=== PATIENT | female | born 1950 | race Caucasian/White ===

== ENCOUNTER 2023-09-06 16:22 | Outpatient (CLI) | payer MEDICARE ==
[2023-09-06 16:47] LABS: Albumin 3.3 g/dL (3.4-4.8); Anion Gap 15 mmol/L (10-20); BUN (Urea Nitrogen) 55 mg/dL (9.8-20.1); BUN/Creatinine Ratio 27.78; Calc. Creatinine Clearance 0 mL/min (70-130); Calcium 8.4 mg/dL (7.8-10.44); Carbon Dioxide 31 mmol/L (23-31); Chloride 98 mmol/L (98-107); Estimated GFR 27; Glucose 286 mg/dL (83-110); Phosphorus 4.8 mg/dL (2.3-4.7); Potassium 4.1 mmol/L (3.5-5.1); Sodium 140 mmol/L (136-145)
[2023-09-06 17:09] LABS: Follow-up Chemistry Comp? YES; Follow-up Result - Chemistry REPORT FAXED
== END 2023-09-06 16:23 | disposition home or self-care (01) ==
LOC: NAV LABSP 16:22
PROVIDERS: ATTEND Internal Medicine Nephrology
DX: N17.9 Acute kidney failure, unspecified (principal); I50.9 Heart failure, unspecified; E11.9 Type 2 diabetes mellitus without complications
CPT/HCPCS: 80069

== ENCOUNTER 2024-03-27 11:47 | Inpatient (IN) | payer MEDICARE ==
[2024-03-27] MEDS ORDERED: Milk Of Magnesia 30 ML UDCUP PO PRN (15:45)
[2024-03-27] MEDS ORDERED: Acetaminophen 325 MG TAB PO PRN (15:45)
[2024-03-27] MEDS ORDERED: Dextrose 50% Abboject 50 ML SYRINGE SLOW IVP PRN (15:48)
[2024-03-27] MEDS ORDERED: Glucagon 1 MG/ML KIT IM PRN (15:48)
[2024-03-27] MEDS ORDERED: Senokot S 8.6-50 MG TAB PO PRN (15:48)
[2024-03-27 17:27] LABS: Glucose 250 mg/dL (83-110)
[2024-03-27] MEDS: Dronedarone HCl 400 MG TAB PO SCH (17:35)
[2024-03-27] MEDS: Insulin Regular 300 UNITS/3 ML VIAL SC PRN (18:41)
[2024-03-27] MEDS: Insulin Regular 300 UNITS/3 ML VIAL ONE (19:32)
[2024-03-27] MEDS: Lantus 1000 UNITS/10 ML VIAL SC SCH (20:46)
[2024-03-27] MEDS: Gabapentin 100 MG CAP PO SCH (20:47)
[2024-03-27] MEDS: Folic Acid 1 MG TAB PO SCH (20:48)
[2024-03-27] MEDS: Apixaban 5 MG TAB PO SCH (20:48)
[2024-03-27] MEDS: Rosuvastatin 10 MG TAB PO SCH (20:48)
[2024-03-27] MEDS: Polyethylene Glycol 3350 17 GM Packet PO SCH (20:49)
[2024-03-28] MEDS: Loratadine 10 MG TAB PO SCH (01:21)
[2024-03-28] MEDS: Levothyroxine 150 MCG TAB PO SCH (01:22)
[2024-03-28 05:53] LABS: #Eosinphils 0.2 thou/uL (0.0-0.7); #Lymphocytes 1.1 thou/uL (1.20-3.40); #Monocytes 0.9 thou/uL (0.11-0.59); #Neutrophils 3.6 thou/uL (1.40-6.50); %Basophils 0.8 % (0.0-1.0); %Eosinophils 3.2 % (0.0-10.0); %Lymphocytes 19.5 % (21.0-51.0); %Monocytes 15.2 % (0.0-10.0); %Neutrophils 61.4 % (42.0-75.0); Hematocrit 31.4 % (36.0-47.0); Hemoglobin 9.8 g/dL (12.0-16.0); Mean Corpuscular HGB CONC 31.4 g/dL (32.0-36.0); Mean Corpuscular Hemoglobin 29.1 pg (27.0-31.0); Mean Corpuscular Volume 92.9 fl (78.0-98.0); Mean Platelet Volume 9.8 fL (7.4-10.4); Platelet Count 155 10x3/uL (130-400); RBC Distribution Width 13.7 % (11.5-14.5); Red Blood Cell (RBC) Count 3.38 mill/uL (4.20-5.40); White Blood Cell (WBC) Count 5.8 10x3/uL (4.8-10.8)
[2024-03-28 06:04] LABS: ALT (SGPT) 24 U/L (8-55); AST (SGOT) 20 U/L (5-34); Albumin 4.1 g/dL (3.4-4.8); Alkaline Phosphatase 63 U/L (40-110); Anion Gap 16 mmol/L (10-20); BUN (Urea Nitrogen) 76 mg/dL (9.8-20.1); Bilirubin, Total 0.9 mg/dL (0.2-1.2); Calc. Creatinine Clearance 0 mL/min (70-130); Calcium 8.6 mg/dL (7.8-10.44); Carbon Dioxide 27 mmol/L (23-31); Chloride 99 mmol/L (98-107); Estimated GFR 19; Globulin 3.2 g/dL (2.4-3.5); Glucose 187 mg/dL (83-110); Potassium 4.2 mmol/L (3.5-5.1); Protein, Total 7.3 g/dL (5.8-8.1); Sodium 138 mmol/L (136-145)
[2024-03-28] MEDS: Torsemide 20 MG TAB PO SCH (08:32)
[2024-03-28] MEDS: Spironolactone 100 MG TAB PO SCH (08:34)
[2024-03-28] MEDS: Empagliflozin 10 MG TAB PO SCH (08:35)
[2024-03-28] MEDS: NIFEdipine XL 30 MG ER.TAB PO SCH (08:36)
[2024-03-28] MEDS: Pantoprazole DR 40 MG TAB PO SCH (08:36)
[2024-03-28] MEDS ORDERED: Amlodipine 5 MG TAB PO SCH (09:00)
[2024-03-28] MEDS: Acetaminophen 325 MG TAB PO PRN (10:16)
[2024-03-28] MEDS: Lantus 1000 UNITS/10 ML VIAL SC SCH (21:18)
[2024-03-28] MEDS: Insulin Regular 300 UNITS/3 ML VIAL SC PRN (21:19)
[2024-03-29] MEDS: ZYRTEC 10 MG PO SCH (00:35)
[2024-03-29 22:23] LABS: Iron 104 ug/dL (50-170); Iron Binding Capacity, Total 348 mcg/dL (265-497)
[2024-03-30] MEDS: Lantus 1000 UNITS/10 ML VIAL SC SCH (08:11)
[2024-03-31] MEDS: Lantus 1000 UNITS/10 ML VIAL SC SCH (09:57)
[2024-03-31] MEDS: HumaLOG 300 UNITS/3 ML VIAL SC SCH (11:30)
[2024-04-02 05:47] LABS: #Basophils 0.1 thou/uL (0.0-0.2); #Eosinphils 0.1 thou/uL (0.0-0.7); #Lymphocytes 0.9 thou/uL (1.20-3.40); #Monocytes 0.5 thou/uL (0.11-0.59); #Neutrophils 2.9 thou/uL (1.40-6.50); %Basophils 1.4 % (0.0-1.0); %Eosinophils 2.6 % (0.0-10.0); %Lymphocytes 19.5 % (21.0-51.0); %Monocytes 12.1 % (0.0-10.0); %Neutrophils 64.4 % (42.0-75.0); Hematocrit 30.4 % (36.0-47.0); Hemoglobin 9.3 g/dL (12.0-16.0); Mean Corpuscular HGB CONC 30.7 g/dL (32.0-36.0); Mean Corpuscular Hemoglobin 29.2 pg (27.0-31.0); Mean Platelet Volume 8.6 fL (7.4-10.4); Platelet Count 148 10x3/uL (130-400); RBC Distribution Width 14.8 % (11.5-14.5); White Blood Cell (WBC) Count 4.5 10x3/uL (4.8-10.8)
[2024-04-02 06:00] LABS: Anion Gap 15 mmol/L (10-20); BUN (Urea Nitrogen) 55 mg/dL (9.8-20.1); Calc. Creatinine Clearance 35 mL/min (70-130); Calcium 8.9 mg/dL (7.8-10.44); Carbon Dioxide 25 mmol/L (23-31); Chloride 104 mmol/L (98-107); Estimated GFR 22; Glucose 150 mg/dL (83-110); Potassium 4.9 mmol/L (3.5-5.1); Sodium 139 mmol/L (136-145)
[2024-04-03] MEDS: Empagliflozin 10 MG TAB PO SCH (07:55)
[2024-04-03] MEDS: Lantus 1000 UNITS/10 ML VIAL SC SCH (21:09)
[2024-04-04 05:50] LABS: Hematocrit 28.9 % (36.0-47.0); Hemoglobin 9.1 g/dL (12.0-16.0); Platelet Count 147 10x3/uL (130-400)
[2024-04-04] MEDS: HumaLOG 300 UNITS/3 ML VIAL SC SCH (10:20)
[2024-04-05] MEDS: Polyethylene Glycol 3350 17 GM Packet PO PRN (08:07)
[2024-04-06 06:46] LABS: #Basophils 0.1 thou/uL (0.0-0.2); #Eosinphils 0.1 thou/uL (0.0-0.7); #Lymphocytes 0.8 thou/uL (1.20-3.40); #Monocytes 0.5 thou/uL (0.11-0.59); #Neutrophils 2.7 thou/uL (1.40-6.50); %Basophils 1.2 % (0.0-1.0); %Eosinophils 3.2 % (0.0-10.0); %Lymphocytes 18.5 % (21.0-51.0); %Monocytes 11.9 % (0.0-10.0); %Neutrophils 65.2 % (42.0-75.0); Hematocrit 31.2 % (36.0-47.0); Hemoglobin 9.3 g/dL (12.0-16.0); Mean Corpuscular HGB CONC 29.7 g/dL (32.0-36.0); Mean Corpuscular Hemoglobin 29.3 pg (27.0-31.0); Mean Corpuscular Volume 98.4 fl (78.0-98.0); Mean Platelet Volume 9.4 fL (7.4-10.4); Platelet Count 160 10x3/uL (130-400); RBC Distribution Width 15.3 % (11.5-14.5); Red Blood Cell (RBC) Count 3.17 mill/uL (4.20-5.40); White Blood Cell (WBC) Count 4.1 10x3/uL (4.8-10.8)
[2024-04-06 06:58] LABS: Anion Gap 18 mmol/L (10-20); BUN (Urea Nitrogen) 54 mg/dL (9.8-20.1); Calc. Creatinine Clearance 32 mL/min (70-130); Calcium 9.4 mg/dL (7.8-10.44); Carbon Dioxide 23 mmol/L (23-31); Chloride 106 mmol/L (98-107); Estimated GFR 20; Glucose 172 mg/dL (83-110); Potassium 5.9 mmol/L (3.5-5.1); Sodium 141 mmol/L (136-145)
[2024-04-06] MEDS: Ipratropium/Albuterol 3 ML NEB NEB PRN (09:10)
[2024-04-06] MEDS ORDERED: hydrALAZINE 25 MG TAB PO PRN (11:39)
[2024-04-06] MEDS: Sodium Polystyrene Sulfonate 15 GM (60 mL) BOT PO SCH ×2 (11:55→22:00)
[2024-04-06] MEDS: HumaLOG 300 UNITS/3 ML VIAL SC SCH (12:04)
[2024-04-06 12:12] LABS: Troponin I 0.064 ng/mL (< 0.028)
[2024-04-06] MEDS: Furosemide 40 MG (4 mL) VIAL SLOW IVP SCH (13:13)
[2024-04-06 13:26] LABS: Troponin I 0.049 ng/mL (< 0.028)
[2024-04-06 14:23] LABS: Influenza A by NAA Not Detected (NotDetected); Influenza B by NAA Not Detected (NotDetected); SARS-CoV-2 NAA Rapid Test Not Detected (NotDetected)
[2024-04-06 18:24] LABS: Anion Gap 17 mmol/L (10-20); BUN (Urea Nitrogen) 55 mg/dL (9.8-20.1); Calc. Creatinine Clearance 32 mL/min (70-130); Calcium 9.4 mg/dL (7.8-10.44); Carbon Dioxide 26 mmol/L (23-31); Chloride 104 mmol/L (98-107); Estimated GFR 20; Glucose 138 mg/dL (83-110); Sodium 141 mmol/L (136-145)
[2024-04-06 18:38] LABS: Critical Call Chemistry NUR.KC10@18:39; Potassium 6.1 mmol/L (3.5-5.1)
[2024-04-06] MEDS: Lantus 1000 UNITS/10 ML VIAL SC SCH (20:51)
[2024-04-06] MEDS: Senokot S 8.6-50 MG TAB PO PRN (20:55)
[2024-04-07 06:52] VITALS: BMI 44.4
[2024-04-07 07:00] LABS: Anion Gap 18 mmol/L (10-20); BUN (Urea Nitrogen) 54 mg/dL (9.8-20.1); Calc. Creatinine Clearance 33 mL/min (70-130); Calcium 9.4 mg/dL (7.8-10.44); Chloride 103 mmol/L (98-107); Estimated GFR 20; Glucose 99 mg/dL (83-110); Potassium 5.8 mmol/L (3.5-5.1); Sodium 141 mmol/L (136-145)
[2024-04-07 07:13] LABS: Carbon Dioxide 26 mmol/L (23-31)
[2024-04-07] MEDS: Ondansetron ODT 4 MG TAB SL PRN (09:50)
[2024-04-07] MEDS: Sodium Polystyrene Sulfonate 15 GM (60 mL) BOT PO SCH (09:51)
[2024-04-07] MEDS: Furosemide 40 MG (4 mL) VIAL SLOW IVP SCH ×2 (09:51→17:24)
[2024-04-07 16:24] LABS: Anion Gap 16 mmol/L (10-20); BUN (Urea Nitrogen) 53 mg/dL (9.8-20.1); Calc. Creatinine Clearance 30 mL/min (70-130); Carbon Dioxide 30 mmol/L (23-31); Chloride 101 mmol/L (98-107); Estimated GFR 18; Glucose 81 mg/dL (83-110); Potassium 5.4 mmol/L (3.5-5.1); Sodium 142 mmol/L (136-145)
[2024-04-07] MEDS: Lantus 1000 UNITS/10 ML VIAL SC SCH (20:55)
[2024-04-08 06:14] LABS: Anion Gap 17 mmol/L (10-20); BUN (Urea Nitrogen) 59 mg/dL (9.8-20.1); Calc. Creatinine Clearance 29 mL/min (70-130); Calcium 8.8 mg/dL (7.8-10.44); Carbon Dioxide 30 mmol/L (23-31); Chloride 100 mmol/L (98-107); Estimated GFR 17; Glucose 128 mg/dL (83-110); Potassium 5.5 mmol/L (3.5-5.1); Sodium 141 mmol/L (136-145)
[2024-04-08] MEDS: HumaLOG 300 UNITS/3 ML VIAL SC SCH (08:21)
[2024-04-08] MEDS: Torsemide 20 MG TAB PO SCH (11:49)
[2024-04-08] MEDS: Sodium Polystyrene Sulfonate 15 GM (60 mL) BOT PO SCH (11:58)
[2024-04-09 05:26] LABS: #Lymphocytes 0.8 thou/uL (1.20-3.40); #Monocytes 0.5 thou/uL (0.11-0.59); %Eosinophils 1.3 % (0.0-10.0); %Lymphocytes 23.6 % (21.0-51.0); %Monocytes 14.7 % (0.0-10.0); %Neutrophils 59.5 % (42.0-75.0); Hematocrit 30.3 % (36.0-47.0); Hemoglobin 8.9 g/dL (12.0-16.0); Mean Corpuscular HGB CONC 29.5 g/dL (32.0-36.0); Mean Corpuscular Hemoglobin 28.8 pg (27.0-31.0); Mean Corpuscular Volume 97.9 fl (78.0-98.0); Mean Platelet Volume 8.2 fL (7.4-10.4); Platelet Count 145 10x3/uL (130-400); RBC Distribution Width 15.3 % (11.5-14.5); Red Blood Cell (RBC) Count 3.09 mill/uL (4.20-5.40); White Blood Cell (WBC) Count 3.4 10x3/uL (4.8-10.8)
[2024-04-09 05:28] LABS: Anion Gap 17 mmol/L (10-20); BUN (Urea Nitrogen) 60 mg/dL (9.8-20.1); Calc. Creatinine Clearance 32 mL/min (70-130); Calcium 8.6 mg/dL (7.8-10.44); Carbon Dioxide 31 mmol/L (23-31); Chloride 98 mmol/L (98-107); Estimated GFR 18; Glucose 115 mg/dL (83-110); Potassium 4.6 mmol/L (3.5-5.1); Sodium 141 mmol/L (136-145)
[2024-04-09] MEDS: Torsemide 20 MG TAB PO SCH (08:30)
[2024-04-09 12:42] VITALS: BMI 47.0
[2024-04-09] MEDS: Lantus 1000 UNITS/10 ML VIAL SC SCH (21:47)
[2024-04-10] MEDS: Lantus 1000 UNITS/10 ML VIAL SC SCH (08:30)
[2024-04-10 08:31] VITALS: BP 143/67
[2024-04-10 09:13] VITALS: TEMP 98
[2024-04-10] MEDS: Torsemide 20 MG TAB PO SCH (13:04)
[2024-04-10 14:24] LABS: Anion Gap 17 mmol/L (10-20); BUN (Urea Nitrogen) 58 mg/dL (9.8-20.1); Calc. Creatinine Clearance 0 mL/min (70-130); Calcium 8.9 mg/dL (7.8-10.44); Carbon Dioxide 27 mmol/L (23-31); Chloride 97 mmol/L (98-107); Estimated GFR 19; Glucose 156 mg/dL (83-110); Potassium 4.4 mmol/L (3.5-5.1); Sodium 137 mmol/L (136-145)
[2024-04-10 14:38] LABS: #Eosinphils 0.1 thou/uL (0.0-0.7); #Lymphocytes 0.7 thou/uL (1.20-3.40); #Monocytes 0.4 thou/uL (0.11-0.59); %Basophils 1.3 % (0.0-1.0); %Eosinophils 1.7 % (0.0-10.0); %Monocytes 12.9 % (0.0-10.0); %Neutrophils 63.1 % (42.0-75.0); Hemoglobin 9.1 g/dL (12.0-16.0); Mean Corpuscular HGB CONC 29.4 g/dL (32.0-36.0); Mean Corpuscular Hemoglobin 28.8 pg (27.0-31.0); Mean Corpuscular Volume 98.1 fl (78.0-98.0); Mean Platelet Volume 8.7 fL (7.4-10.4); Platelet Count 146 10x3/uL (130-400); RBC Distribution Width 15.3 % (11.5-14.5); Red Blood Cell (RBC) Count 3.16 mill/uL (4.20-5.40); White Blood Cell (WBC) Count 3.2 10x3/uL (4.8-10.8)
== END 2024-04-10 17:38 | disposition short-term general hospital (02) | DRG 205 ==
LOC: NAV ACUTE 14:56
PROVIDERS: ADMIT Family Medicine; ATTEND Family Medicine
DX: E66.2 Morbid (severe) obesity with alveolar hypoventilation (principal); I50.43 Acute on chronic combined systolic (congestive) and diastolic (congestive) heart failure; J96.21 Acute and chronic respiratory failure with hypoxia; I13.0 Hypertensive heart and chronic kidney disease with heart failure and stage 1 through stage 4 chronic kidney disease, or unspecified chronic kidney disease; N18.4 Chronic kidney disease, stage 4 (severe); Z68.45 Body mass index [BMI] 70 or greater, adult; R53.81 Other malaise; I48.91 Unspecified atrial fibrillation; I25.10 Atherosclerotic heart disease of native coronary artery without angina pectoris; E87.5 Hyperkalemia; E11.22 Type 2 diabetes mellitus with diabetic chronic kidney disease; E03.9 Hypothyroidism, unspecified; D63.1 Anemia in chronic kidney disease; I45.9 Conduction disorder, unspecified; Z95.0 Presence of cardiac pacemaker; Z90.712 Acquired absence of cervix with remaining uterus; Z98.890 Other specified postprocedural states; Z88.5 Allergy status to narcotic agent; Z88.0 Allergy status to penicillin; Z88.8 Allergy status to other drugs, medicaments and biological substances; Z79.4 Long term (current) use of insulin
CPT/HCPCS: 36415; 36416; 71045; 80048; 80053; 82306; 82728; 83540; 83550; 83880; 84145; 84484; 85014; 85018; 85025; 85049; J1815; J1940; J7620; Q0162

== ENCOUNTER 2024-06-19 15:24 | Emergency (ER) | payer MEDICARE, OTHER ==
[2024-06-19 15:54] LABS: #Basophils 0.1 thou/uL (0.0-0.2); #Eosinphils 0.2 thou/uL (0.0-0.7); #Lymphocytes 1.6 thou/uL (1.20-3.40); #Monocytes 0.6 thou/uL (0.11-0.59); #Neutrophils 4.6 thou/uL (1.40-6.50); %Basophils 0.9 % (0.0-1.0); %Eosinophils 2.9 % (0.0-10.0); %Lymphocytes 22.6 % (21.0-51.0); %Monocytes 8.8 % (0.0-10.0); %Neutrophils 64.9 % (42.0-75.0); Hematocrit 43.3 % (36.0-47.0); Hemoglobin 13.4 g/dL (12.0-16.0); Mean Corpuscular HGB CONC 30.9 g/dL (32.0-36.0); Mean Corpuscular Hemoglobin 27.3 pg (27.0-31.0); Mean Corpuscular Volume 88.2 fl (78.0-98.0); Platelet Count 196 10x3/uL (130-400); RBC Distribution Width 14.1 % (11.5-14.5); Red Blood Cell (RBC) Count 4.91 mill/uL (4.20-5.40); White Blood Cell (WBC) Count 7.1 10x3/uL (4.8-10.8)
[2024-06-19] MEDS ORDERED: Furosemide 20 MG (2 mL) VIAL ONE (15:57)
[2024-06-19 16:16] LABS: ALT (SGPT) 42 U/L (8-55); AST (SGOT) 33 U/L (5-34); Albumin 3.5 g/dL (3.4-4.8); Alkaline Phosphatase 69 U/L (40-110); Anion Gap 18 mmol/L (10-20); BUN (Urea Nitrogen) 59 mg/dL (9.8-20.1); Bilirubin, Total 0.7 mg/dL (0.2-1.2); Calc. Creatinine Clearance 0 mL/min (70-130); Calcium 8.7 mg/dL (7.8-10.44); Carbon Dioxide 25 mmol/L (23-31); Chloride 103 mmol/L (98-107); Estimated GFR 21; Glucose 99 mg/dL (83-110); Potassium 4.2 mmol/L (3.5-5.1); Protein, Total 6.5 g/dL (5.8-8.1); Sodium 142 mmol/L (136-145); Troponin I 0.067 ng/mL (< 0.028)
[2024-06-19] MEDS ORDERED: Torsemide 20 MG TAB PO SCH (16:30)
== END 2024-06-19 20:11 | disposition short-term general hospital (02) ==
LOC: NAV ERS 15:24
DX: R60.9 Edema, unspecified (principal); I13.0 Hypertensive heart and chronic kidney disease with heart failure and stage 1 through stage 4 chronic kidney disease, or unspecified chronic kidney disease; E11.22 Type 2 diabetes mellitus with diabetic chronic kidney disease; N18.4 Chronic kidney disease, stage 4 (severe); I50.9 Heart failure, unspecified; R06.02 Shortness of breath; I48.91 Unspecified atrial fibrillation; R79.89 Other specified abnormal findings of blood chemistry; Z95.0 Presence of cardiac pacemaker
CPT/HCPCS: 71045; 80053; 83880; 84443; 84484; 85025; 93005; 94760; 96374; J1940